=== PATIENT | male | born 1955 | race Caucasian/White ===

== ENCOUNTER 2021-09-23 20:48 | Emergency (ER) | payer OTHER, SELFPAY ==
--- NOTE | ~2021-09-23 | CT_ITS ---
EXAMINATION: CT brain wo con EXAM DATE: 09/23/2021 22:06 INDICATION: vertigo . Nausea and vomiting. Prostate cancer. TECHNIQUE: Spiral CT of the head was performed without contrast. Axial, coronal and sagittal images were reviewed. The dose-length product (DLP) for this examination was 605.33 mGy-cm. The exposure w as tailored according to patient size, and iterative reconstruction (ASIR) was used as additional dos e reduction technique. There is no prior study for comparison. 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 There is no acute intraparenchymal hemorrhage. No evidence of intraparenchymal brain mass lesion. No evidence of acute infarction. Please note that initial head CT has limited sensitivity for small or acute infarctions. There is mild periventricular and subcortical hypodensity, nonspecific but probably related to small vessel ischemic disease. Th ere is mild prominence of the sulci and ventricles related to cerebral atrophy. There is intracrani al carotid arteriosclerosis. There are no extra-axial collections. There is no mass effect or midli ne shift. The orbits are unremarkable. Soft tissue is unremarkable. Small left maxillary sinus muc ous retention cyst. IMPRESSION: 1. 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 2. Chronic age related findings. Reviewed, dictated and finalized at location A. K BENCH MECHANIC
[2021-09-23 21:01] VITALS: BP 143/91; PULSE 54; RESP 13; TEMP 36.6; O2SAT 100
[2021-09-23 21:29] VITALS: PULSE 60
--- NOTE | 2021-09-23 21:37 | ED.GENADULT ---
HPI - General Adult General Chief complaint: Nausea/Vomiting/Diarrhea <Violet Estrella APRN - Last Filed: 09/24/21 21:18> Stated complaint: N/V c vertigo <Violet Estrella APRN - Last Filed: 09/24/21 21:18> Time Seen by Provider: 09/23/21 20:50 <Violet Estrella APRN - Last Filed: 09/24/21 21:18> Source: patient <Violet Estrella APRN - Last Filed: 09/24/21 21:18> Mode of arrival: ambulatory <Violet Estrella APRN - Last Filed: 09/24/21 21:18> Limitations: no limitations <Violet Estrella APRN - Last Filed: 09/24/21 21:18> History of Present Illness HPI narrative: 66-year-old male presents today with complaints of nausea and vomiting. Patient seen yesterday by primary for complaints of vertigo. Patient states vertigo started 3 days ago and is intermittent. Patient denies any specific aggravating factors or relieving factors. Patient states it feels like the room is swaying. at the bedside at current time. Patient and deny any other neurological issues, slurred speech, facial drooping, or weakness. <Violet Estrella APRN - Last Filed: 09/24/21 21:18> Related Data Home medications: Home Medications Medication Instructions Recorded Confirmed aspirin 81 mg tablet,delayed 81 mg PO DAILY 08/20/19 09/18/21 release omeprazole 20 mg capsule,delayed 20 mg PO DAILY PRN 07/18/21 09/18/21 release multivitamin 1 tablet PO DAILY 09/22/21 <Violet Estrella APRN - Last Filed: 09/24/21 21:18> Allergies/adverse reactions: Allergies Allergy/AdvReac Type Severity Reaction Status Date / Time No Known Allergies Allergy Verified 09/22/21 08:49 <Violet Estrella APRN - Last Filed: 09/24/21 21:18> Review of Systems Review of Systems: CONSTITUTIONAL: Denies fever, chills, or sweats. EYES: Denies visual changes, redness, or discharge. ENT: Denies rhinorrhea, congestion, sore throat, or otalgia. CARDIOVASCULAR: Denies chest pain, palpitations, or edema. RESPIRATORY: Denies cough or dyspnea. GASTROINTESTINAL: Denies abdominal pain, nausea, vomiting, or diarrhea. GENITOURINARY: Denies dysuria or hematuria. SKIN: Denies rash or itching. MUSCULOSKELETAL: Denies back pain, joint pain, or myalgia. NEUROLOGIC: Denies headache, numbness, or weakness. Positive for vertigo. Patient states room feels like it is swaying. PSYCHIATRIC: Denies anxiety or depression. <Violet Estrella APRN - Last Filed: 09/24/21 21:18> [facility] Past Medical History Medical History: Medical History (Updated 09/23/21 @ 23:53 by Violet Estrella APRN) Squamous cell carcinoma Vaccine counseling Vertigo <Violet Estrella APRN - Last Filed: 09/24/21 21:18> Family History Family History: Family History Father Family history of cardiovascular disease <Violet Estrella APRN - Last Filed: 09/24/21 21:18> Social History Social History: Social History Smoking packs per day: 1 Smoking cigarettes per day: 20.0 Years smoked: 15 Smoking pack-years: 15.00 Smoking status: Former smoker Second hand tobacco smoke exposure: No Smoking end date: 07/29/83 Alcohol intake: current Drinks per week: 3 Substance use: never Substance use type: does not use <Violet Estrella APRN - Last Filed: 09/24/21 21:18> Exam Narrative: GENERAL: Well-appearing, well-nourished, and in no acute distress. HEAD: Normocephalic, atraumatic. EYES: PERRLA, nystagmus, EOM intact bilaterally.. ENT: Nares clear, no rhinorrhea or epistaxis. Mucous membranes moist. Oropharynx without tonsillar hypertrophy exudate or other lesions. Bilateral TMs pearly garibay nonbulging NECK: Supple. No adenopathy or masses. No carotid bruits or JVD CHEST: Clear to auscultation. No respiratory distress. No wheezes rales or rhonchi HEART: Regular rate and rhythm. No murmur heard. Normal peripheral pulses. ABDOMEN: Soft,
[2021-09-23] MEDS: ONDANSETRON INJ 4 MG/2 ML VIAL IV PUSH (21:44)
[2021-09-23] MEDS: SODIUM CHLORIDE 0.9% IV 1,000 ML 999 ML IV CONT (21:44)
[2021-09-23 21:47] LABS: Basophils Percent Auto 0.4 % (0.2-1.2); Eosinophils Absolute Auto 0.1 K/mm3 (0-0.3); Eosinophils Percent Auto 1.4 % (0-4.4); Hematocrit 44.3 % (42.0-52.0); Hemoglobin 15.1 g/dL (14.0-18.0); Immature Granulocyte Absolute 0.02 K/mm3 (0.00-0.031); Immature Granulocyte Percent A 0.2 % (0-0.5); Lymphocytes Absolute Auto 1.73 K/mm3 (0.9-3.2); Lymphocytes Percent Auto 18.9 % (18.3-44.2); Mean Corpuscular HGB Conc 34.1 g/dl (32-36); Mean Corpuscular Hemoglobin 32.5 pg (26-34); Mean Corpuscular Volume 95.5 fl (80-100); Mean Platelet Volume 10.5 fl (7.4-10.4); Monocytes Absolute Auto 0.8 K/mm3 (0.1-0.6); Monocytes Percent Auto 8.5 % (2.6-8.5); Neutrophils Absolute Auto 6.4 K/mm3 (1.3-6.7); Neutrophils Percent Auto 70.6 % (45.5-73.1); Platelet Count Result 206 k/mm3 (150-375); Red Blood Count 4.64 M/mm3 (4.6-6.20); Red Cell Distribution Width 12.4 % (11.5-14.5); White Blood Count 9.1 K/mm3 (4.5-10.0)
[2021-09-23 21:50] LABS: Glucose Point of Care 140 mg/dl (65-105)
[2021-09-23 22:05] VITALS: BP 125/84; BP 140/86; PULSE 66; PULSE 74
[2021-09-23 22:07] VITALS: BP 136/90; PULSE 78
[2021-09-23 22:08] LABS: Alanine Aminotransferase 28 U/L (4-50); Albumin Level 4.4 g/dL (3.5-5.1); Alkaline Phosphatase 40 U/L (38-126); Anion Gap 6 mmol/L (8-16); Aspartate Amino Transferase 32 U/L (17-59); Bilirubin,Total 0.9 mg/dL (0.2-1.3); Blood Urea Nitrogen 23 mg/dL (9-20); Calcium 8.4 mg/dL (8.4-10.2); Carbon Dioxide 28 mmol/L (22-30); Chloride 105 mmol/L (98-107); Estimated CRCL calculation 77 ml/min; Estimated Glomerular Filt Rate > 60; Glucose 146 mg/dL (65-110); Potassium 3.4 mmol/L (3.4-5.0); Sodium 139 mmol/L (137-145)
[2021-09-23 22:27] VITALS: BP 136/90; PULSE 71; RESP 20; O2SAT 100
[2021-09-23] MEDS: diazePAM INJ (*CRX) 10 MG/2 ML SYRINGE 2.5 MG IV PUSH (22:28)
--- NOTE | 2021-09-23 22:53 | PC.NURSE ---
Pt states his dizziness has improved. Repots he is able to open his eyes without difficulty. Lights dimmed, pt resting on stretcher
[2021-09-23 23:04] LABS: Add Urine Microscopic? YES; Appearance Urine Clear (Clear); Bilirubin Urine Negative (Negative); Blood Urine Negative (Negative); Color Urine Yellow (Yellow); Glucose Urine UA Negative (Negative); Ketones Urine Negative (Negative); Leukocyte Esterase Ur Negative LEU/UL (Negative); Mucus Urine Rare /lpf; Nitrate Urine Negative (Negative); Protein Urine 1+ mg/dL (Negative); RBC Urine 0-2 /hpf (0-2); Specific Grav Ur 1.029 (1.001-1.035); WBC Urine 0-3 /hpf
--- NOTE | 2021-09-23 23:31 | PC.NURSE ---
Pt ambulated with steady gait
== END 2021-09-24 00:05 | disposition home or self-care (01) ==
PROVIDERS: Emergency Provider Nurse Practitioner Family; PCP Internal Medicine
DX: R42 Dizziness and giddiness (principal); Z79.82 Long term (current) use of aspirin; Z85.828 Personal history of other malignant neoplasm of skin; Z87.891 Personal history of nicotine dependence
CPT/HCPCS: 36415; 70450; 80053; 81001; 82948; 85025; 96361; 96374; 96375; 99284; J2405; J3360; J7030

== ENCOUNTER 2023-08-09 00:54 | Day surgery (SDC) | payer OTHER, SELFPAY ==
[2023-07-15 15:39] VITALS: BMI 27.3
--- NOTE | 2023-08-07 10:49 | SUR.PREOP ---
Patient called regarding upcoming procedure. Reviewed preop instructions, appointment times, and procedure prep.
--- NOTE | 2023-08-08 17:43 | PM.HPGS ---
History of Present Illness History of Present Illness Consent: Risks, benefits, and alternatives have been discussed and questions answered. Patient agrees to proceed with procedure. Chief complaint: neoplasm screening Narrative: Cain Willams is a 68 year old male Who was referred for colon cancer screening. His last colonoscopy was 6 years ago at which time he had 4 polyps removed, 2 of which were adenomatous. Review of Systems Review of Systems: All systems reviewed & are unremarkable except as noted in HPI and below PMFSH Past Medical History Medical History Adult BMI 27.0-27.9 kg/sq m Squamous cell carcinoma Vaccine counseling Vertigo Family History Family History Father Family history of cardiovascular disease Lung cancer Brain cancer Heart disease Grandparent Heart disease Mother Dementia Skin cancer Sibling Heart disease Social History Social History Smoking packs per day: 1 Smoking cigarettes per day: 20.0 Years smoked: 15 Smoking pack-years: 15.00 Smoking status: Former smoker Second hand tobacco smoke exposure: No Smoking end date: 07/29/83 Alcohol intake: current Drinks per week: 3 Substance use: never Substance use type: does not use Lack of Transportation: No Lack of Food: Never True Current Housing: I Have Housing Concerned About Future Housing: No Difficulty Paying Gas/Electric Bills: No Difficulty Paying for Meds: No Currently Unemployed: No Education: Trade/Vocational Certificate Difficulty w/ Childcare or Family Care: No Living arrangements: with family Occupation/Education: occupation 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 Gender identity (if verbalized by the patient): Male Spiritual care concerns: No Meds Home Medications and Allergies Home Medications Medication Instructions Recorded Confirmed Type aspirin 81 mg tablet,delayed 81 mg PO DAILY 08/20/19 08/09/23 History release (Aspir-) omeprazole 20 mg capsule,delayed 20 mg PO DAILY PRN Heartburn 07/18/21 08/09/23 History release multivitamin (Daily Multi-Vitamin 1 tablet PO DAILY 09/22/21 08/09/23 History tablet) desonide 0.05 % topical cream 1 g topical DAILY 09/18/22 08/09/23 History losartan 50 mg-hydrochlorothiazide 1 tablet PO DAILY #90 tabs 12/17/22 08/09/23 Rx 12.5 mg tablet levothyroxine 88 mcg tablet 88 mcg PO DAILY #90 tabs 06/16/23 08/09/23 Rx atorvastatin 20 mg tablet 20 mg PO DAILY #90 tabs 06/28/23 08/09/23 Rx Allergies Allergy/AdvReac Type Severity Reaction Status Date / Time No Known Allergies Allergy Verified 08/09/23 07:48 Exam Const: General: alert Orientation/consciousness: patient oriented x3 Resp: Auscultation: clear to auscultation bilaterally Cardio: Rhythm: regular rhythm GI: GI Palp: Yes Soft to palpation and No Tenderness to palpation present (GI) Neuro: General: patient oriented x3 Assessment and Plan Assessment and plan (1) Screen for colon cancer: Code(s): Z12.11 - Encounter for screening for malignant neoplasm of colon Status: Acute Assessment and Plan: Colonoscopy with possible biopsy or polypectomy or cautery or injection of substances.
[2023-08-09 07:50] VITALS: BP 113/79; PULSE 66; RESP 16; TEMP 36.6; O2SAT 97; BMI 26.6
[2023-08-09] MEDS: LACTATED RINGERS 1,000 ML 150 ML IV CONT (08:01)
--- NOTE | 2023-08-09 08:18 | WPDANESEPPF ---
Anes - Initial Pre Proc Eval Procedure: Operation Date: 08/09/23 09:00 Proposed Procedures p Screening Colonoscopy - Nikos Peralta MD Date/Time: 08/09/23 08:18 Surgeon: Nikos Peralta MD Pre Op Diagnosis: neoplasm screening Patient Data Age: 68 Gender: M Height: 1.75 m Weight: 82 kg Last Vital Signs Temp 97.8 F 08/09/23 07:50 Pulse 66 08/09/23 07:50 Resp 16 08/09/23 07:50 BP 113/79 08/09/23 07:50 Pulse Ox 97 08/09/23 07:50 O2 Del Method Room Air 08/09/23 07:50 Allergies Allergy/AdvReac Type Severity Reaction Status Date / Time No Known Allergies Allergy Verified 08/09/23 07:48 Home Medications Medication Instructions Recorded Confirmed Type aspirin 81 mg tablet,delayed 81 mg PO DAILY 08/20/19 08/09/23 History release (Aspir-) omeprazole 20 mg capsule,delayed 20 mg PO DAILY PRN Heartburn 07/18/21 08/09/23 History release multivitamin (Daily Multi-Vitamin 1 tablet PO DAILY 09/22/21 08/09/23 History tablet) desonide 0.05 % topical cream 1 g topical DAILY 09/18/22 08/09/23 History losartan 50 mg-hydrochlorothiazide 1 tablet PO DAILY #90 tabs 12/17/22 08/09/23 Rx 12.5 mg tablet levothyroxine 88 mcg tablet 88 mcg PO DAILY #90 tabs 06/16/23 08/09/23 Rx atorvastatin 20 mg tablet 20 mg PO DAILY #90 tabs 06/28/23 08/09/23 Rx Patient hx anesthesia problems: none Family hx anesthesia problems: none Results Review: All pre-operative results and documents have been reviewed as part of the pre-operative evaluation. [facility] Past Medical History Medical History Adult BMI 27.0-27.9 kg/sq m Squamous cell carcinoma Vaccine counseling Vertigo Family History Family History Father Family history of cardiovascular disease Lung cancer Brain cancer Heart disease Grandparent Heart disease Mother Dementia Skin cancer Sibling Heart disease Social History Social History Smoking packs per day: 1 Smoking cigarettes per day: 20.0 Years smoked: 15 Smoking pack-years: 15.00 Smoking status: Former smoker Second hand tobacco smoke exposure: No Smoking end date: 07/29/83 Alcohol intake: current Drinks per week: 3 Substance use: never Substance use type: does not use Lack of Transportation: No Lack of Food: Never True Current Housing: I Have Housing Concerned About Future Housing: No Difficulty Paying Gas/Electric Bills: No Difficulty Paying for Meds: No Currently Unemployed: No Education: Trade/Vocational Certificate Difficulty w/ Childcare or Family Care: No Living arrangements: with family Occupation/Education: occupation 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 Informed Consent: The patient's anesthetic plan and its attendant risks and benefits were discussed with the patient/family/POA. Questions were solicited and answers provided to the satisfaction of the patient/family/POA.
[2023-08-09 08:59] VITALS: BP 126/75; PULSE 58; RESP 18; O2SAT 97
[2023-08-09 09:09] VITALS: BP 136/65; PULSE 52; RESP 18; O2SAT 100
[2023-08-09 09:19] VITALS: BP 142/81; PULSE 56; RESP 18; O2SAT 100
== END 2023-08-09 09:24 | disposition home or self-care (01) ==
PROVIDERS: PCP Family Medicine; Visit Provider Internal Medicine Gastroenterology
PROC: 0DJD8ZZ Inspection of Lower Intestinal Tract, Via Natural or Artificial Opening Endoscopic (ICD-10-PCS; CPT 45378; principal; 2023-08-09 09:00)
DX: Z12.11 Encounter for screening for malignant neoplasm of colon (principal); D12.4 Benign neoplasm of descending colon; Z87.891 Personal history of nicotine dependence
CPT/HCPCS: 45380; 88305; J2704; J7120

== ENCOUNTER 2024-09-15 11:14 | Emergency (ER) | payer OTHER, SELFPAY ==
--- NOTE | ~2024-09-15 | CT_ITS ---
EXAMINATION: CT brain wo con DATE: 09/15/2024 11:21 INDICATION: Expressive aphasia. TECHNIQUE: Computed tomography (CT) of the head was performed without intravenous contrast. The mA wa s adjusted according to patient size. Iterative reconstruction technique was employed. The dose-lengt h product was 605.33 mGy-cm. COMPARISON: Head CT 09/23/2021 FINDINGS: There is an old infarct in the right frontal lobe. There are scattered areas of low attenua tion in the cerebral white matter. There is no intracranial hemorrhage, acute infarction, or abnormal intracranial mass lesion. The ventricles are normal in size. There is mucosal thickening in the para nasal sinuses. The orbits are normal. The mastoid air cells are normal. IMPRESSION: 1. 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 2. Stable mild nonspecific cerebral white matter disease, which likely represents chronic small vesse l ischemic disease. 3. I discussed this case with Rosalie Trevino. Reviewed, dictated and finalized at location A. RED BUCKLE ASSEMBLER IMPRESSION: 1. 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 2. Stable mild nonspecific cerebral white matter disease, which likely represen ts chronic small vessel ischemic disease. 3. I discussed this case with Rosalie Trevino.
--- NOTE | ~2024-09-15 | CT_ITS ---
EXAMINATION: CTA BRAIN/CAROTID DATE: 09/15/2024 11:29 INDICATION: Stroke with expressive aphasia TECHNIQUE: Computed tomographic angiography (CTA) of the head and neck was performed with 100 mL Omni paque-350 intravenous contrast. Multiplanar reconstructions and maximum intensity projection 3D-recon structions of the carotid arteries and of the intracranial arteries were created by the technologist on a separate workstation. Automated exposure control and iterative reconstruction technique were emp loyed.The dose-length product was 1171.26 mGy-cm. COMPARISON: Head CT dated 09/15/2024 FINDINGS: Carotid arteries: Small amount of nonhemodynamically significant atherosclerotic calcific location along the normal juana iber thoracic aorta with no dissection. No evident plaque or stenosis along the bilateral extracrania l vertebral arteries. There is small amount of atherosclerotic plaque with 0% stenosis of the right a nd left carotid bulbs relative to normal distal artery lumen diameter (NASCET criteria). Severe cervi juana spondylosis. Mild atelectasis likely related to expiratory phase of imaging the visualized upper lungs. Cervical soft tissues are unremarkable. Intracranial arteries Small amount of calcified plaque without significant stenosis at the right carotid siphon. There is n o hemodynamically significant stenosis in the vertebral, basilar and internal carotid arteries. Verte bral arteries are codominant. There are no aneurysms identified. Both A1 and P1 segments are patent. There are also tiny patent bilateral posterior communicating arteries. Cerebral arterial arborizatio n appears symmetric. No abnormally enhancing brain lesions identified. IMPRESSION: 1. Small amount of atherosclerotic plaque with 0% stenosis of the right and left carotid bulbs relati ve to normal distal artery lumen diameter (NASCET criteria). 2. Unremarkable cerebral CT angiogram with no hemodynamically significant stenosis, thrombosis or ane urysm. Reviewed, dictated and finalized at location A. N WAVE TECHNICIAN IMPRESSION: 1. Small amount of atherosclerotic plaque with 0% stenosis of the right and lef t carotid bulbs relative to normal distal artery lumen diameter (NASCET criteri a). 2. Unremarkable cerebral CT angiogram with no hemodynamically significant steno sis, thrombosis or aneurysm.
--- NOTE | ~2024-09-15 | XR_ITS ---
EXAMINATION: XR chest 1V portable DATE: 09/15/2024 12:42 INDICATION: Stroke. TECHNIQUE: A single frontal view of the chest was obtained. COMPARISON: None. FINDINGS: There is no pneumonia, pleural effusion, or pneumothorax. The heart size is normal. IMPRESSION: 1. No acute cardiopulmonary disease. Reviewed, dictated and finalized at location A. NESS ANALYTICS MANAGER
--- NOTE | 2024-09-15 11:15 | ECG_ITS ---
Test Date: 2024-09-15 11:34:38 Measurements Intervals [place] Rate: 56 P: 23 FL: 167 QRS: -38 QRSD: 113 T: 49 QT: 434 QTc: 422 Interpretive Statements SINUS BRADYCARDIA LEFT AXIS DEVIATION INTRAVENTRICULAR CONDUCTION DELAY PATTERN CONSISTENT WITH PULMONARY DISEASE BASELINE ARTIFACT- I, II, III, AVR, AVL, AVF, V1, V4-V6 BORDERLINE ECG No previous ECG available for comparison Electronically Signed On 09-15-2024 12:03:38 ENTERPRISE ENGINEER by Jayjay Balderas D.O.
--- OUTSIDE RECORDS SUMMARY | 2024-09-15 11:19 | XMS_ITS | Referral Summary ---
Author Organization [facility] Address [address] [place] [address] Care Team Providers Care Marine Biologist Name Role Phone Unavailable Primary Care Provider Unavailabl e Source Comments [facility],non-owned Affiliates and Associated Physician Practices is amultiple site organization consisting of ambulatory clinics and hospital sitesin [place], [place], [place]. This disclosure is being madepursuant to the Care Everywhere program and may not contain all information available regarding this patient. Last updated 18.[facility] [place] Social History Tobacco Use Types Packs/Day Years Used Date Smoking Tobacco: Never Assessed Sex and Gender Information Value Date Recorded Sex Assigned at Not on file Gender Identity Not on file Sexual Orientation Not on file Plan of Treatment Not on file
--- OUTSIDE RECORDS SUMMARY | 2024-09-15 11:19 | XMS_ITS | Clinical Summary ---
Author Organization [facility] Address [address] [place] [address] Care Team Providers Care Central Service Technician Name Role Phone Unavailable Primary Care Provider Unavailabl e Source Comments [facility],non-owned Affiliates and Associated Physician Practices is amultiple site organization consisting of ambulatory clinics and hospital sitesin [place], [place], [place] and [place]. This disclosure is being madepursuant to the Care Everywhere program and may not contain all information available regarding this patient. Last updated 18.[facility] Social History Tobacco Use Types Packs/Day Years Used Date Smoking Tobacco: Never Assessed Sex and Gender Information Value Date Recorded Sex Assigned at Not on file Gender Identity Not on file Sexual Orientation Not on file Plan of Treatment Health Maintenance Due Date Last Done Comments COLOGUARD (AGES 45-75) - COL ON CA SCREENING [address] COLONOGRAPHY - COLON CA SCREENING 1955 FIT - COLON CA SCREENING 1955 FLEX SIG - COLON CA SCREENING 1955 LIPID TESTING 1953 HEPATITIS C SCREENING 06/05/1971 DTAP/TDAP/TD VACCINES (1 - Tdap) 1972 PNEUMOCOCCAL VACCINE 50+ (1 of 1 - PCV) 2003 ZOSTER VACCINE (1 of 2) 2003 COLONOSCOPY - COLON CA SCREENING 12/04/2017 12/05/2007 (Previously completed) Colorectal Cancer Screening 12/04/2017 COVID-19 VACCINE ( - 2023-2 5 season) 2024 INFLUENZA VACCINE (#1) 2024 DEPRESSION SCREENING 07/29/2024 MEDICARE AWV CALENDAR YEAR 2024 Respiratory Syncytial Virus (RSV) Vaccine Pt: or over 60 yrs (1 - 1-dose 75+ series) 2028 HEPATITIS B VACCINE Aged Out No longe r eligible based on patient's age to complete this topic HIB VACCINE Aged Out No longer eligi ble based on patient's age to complete this topic HPV VACCINE Aged Out No longer eligi ble based on patient's age to complete this topic MENINGOCOCCAL (Group B) VACCINE Aged Out No longer eligible b ased on patient's age to complete this topic MENINGOCOCCAL VACCINE Aged Out No omer earlene eligible based on patient's age to complete this topic
--- OUTSIDE RECORDS SUMMARY | 2024-09-15 11:19 | XMS_ITS | Clinical Summary ---
Author Organization [facility] Address [address], [address] [address] Phone Care Team Providers Care Infusion Rn Name Role Phone Provider, Unknown Primary Care Provider Unavaila ble Medications polyethylene glycol (MIRALAX) Powder Mix the entire bottle with 64 oz of a clear liquid. Use as directed by the office for colonoscopy prep. 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 Gender Identity Not on file Sexual Orientation Not on file Plan of Treatment Health Maintenance Due Date Last Done Comments Hepatitis C Virus (HCV) Screening 1955 TdaP Immunization 1955 Cologuard 2003 Pneumococcal Immunization (5 0+ years) (1 of 1 - PCV) 2003 Zoster Immunization (1 of 2) 2003 Immunochemical Fecal Occult Blood 12/13/2014 014 Colonoscopy 08/15/2022 08/15/2017 Colorectal Cancer Screening 08/15/2022 Influenza Immunization (#1) 2024 SARS-COV-2 Immunization ( - season) 2024 Respiratory Syncytial Virus (RSV) Immunization (Adult) (1 - 1-dose 75+ series) 2028 08/15/2017 PSA Discussion Discontinued 11/17/2009 Hepatitis B Immunization Aged Out No longer eligible based on patient's age to complete this topic Meningococcal Immunization (ACWY) Aged Out No longer eligible based on patient's age to complete this topic Rotavirus Immunization Aged Out No lo nger eligible based on patient's age to complete this topic Procedures Procedure Name Priority Date/Time Associated Diagnosis Comments COLONOSCOPY Routine 08/15/2017 STOOL, OCCULT BLOOD IMMUNOASSAY (IFOB) Routine 12/13/2013 PSA SCREEN Routine 11/17/2009 from Last 3 Months or Most Recently Relevant to Health Maintenance Results * HM COLONOSCOPY (08/15/2017) us Not On File Provider PROCEDURE/MINOR SURGICAL OR DERABLES Final Result * STOOL, OCCULT BLOOD IMMUNOASSAY (IFOB) (12/13/2013) Specimen of unknown material (specimen) STOOL SPECIMEN / Unknown us Not On File Provider BODY FLUIDS & STOOLS ORDERA BLES Final Result * PSA SCREEN (11/17/2009) PSA SCREEN 2.8 Blood specimen (specimen) 11/17/2009 us Not On File Provider CHEMISTRY ORDERABLES Edited Result - Final from Last 3 Months or Most Recently Relevant to Health Maintenance Insurance [facility] Care Teams Infusion Rn Relationship Specialty Start Date End Date Provider, Unknown UNKNOWN PCP - General 08/17/17
--- OUTSIDE RECORDS SUMMARY | 2024-09-15 11:19 | XMS_ITS | Patient Health Summary ---
Author Organization [facility] Address [address] [place] [address] Care Team Providers Care Hand Engraver Name Role Phone Unavailable Primary Care Provider Unavailabl e Note from [facility],non-owned Affiliates and Associated Physician Practices is amultiple site organization consisting of ambulatory clinics and hospital sitesin [place], [place], [place] and [place]. This disclosure is being madepursuant to the Care Everywhere program and may not contain all information available regarding this patient. Last updated 18.[facility] Social History Tobacco Use Types Packs/Day Years Used Date Smoking Tobacco: Never Assessed Sex and Gender Information Value Date Recorded Sex Assigned at Not on file Gender Identity Not on file Sexual Orientation Not on file Procedures * GROSS + MICRO EXAM(Performed 12/05/2007) Results * GROSS + MICRO EXAM (12/05/2007 12:43 PM CDT) Result CASE NUMBER [id number] Comment: ORDERING PHYSICIAN NARCISA FRYE SPECIMEN TYPE Polyp Colorectal-rectal Date 12/05/2007 Physician Alex Frye Gross Description The specimen is received in Formalin labeled with the patient's name, Cain Willams, and rectal polyp. It consists of one acuña white soft fragment of tissue measuring 0.5 x 0.3 x 0.2 cm in aggregate. The specimen is submitted entirely in a single cassette. DC watson Microscopic Exam Microscopic examination reveals colonic mucosal fragments. One of the fragments shows sessile serrated polyp. High grade dysplasia is not seen. SR cs Diagnosis [1] Rectal polyp, biopsy -- Sessile serrated polyp -- No evidence of high grade dysplasia SR cs Orthotic/Prosthetic Clinician cs Pathologist Kathleen Pradhan M.D. [place]. 12/06/2007 0909 <1> CPT code 05396 MISCELLANEOUS SAMPLES / Unknown 12/05/2007 12:43 PM CDT 12/05/2007 3:02 PM CDT Historical Provider LAB - PATHOLOGY/C YTOLOGY ORDERABLES
--- OUTSIDE RECORDS SUMMARY | 2024-09-15 11:19 | XMS_ITS | Continuity of Care Document ---
Author Organization [facility] Address [address] [place] [address] Phone Care Team Providers Care Ore Washer Name Role Phone Cloud OD, Gilberto Unavailable Unavailable Procedures Procedure Date Eye Exam & Treatment Refraction Eye Exam & Treatment Refraction Frames Deluxe Progressive Lens, Polycarb Tax - Medical Eye Exam, New Patient Refraction Advance Directives Directive Yes / No Effective Date File Name No Information Encounters Encounter Description Practice Location Reason(s) For Visit Diagnoses Date Provider Providers Copied on Encounter [facility], [address] [place] [address] [address], [place], [place], [id number], tel:[phone] [facility] No Information Oct-2 1-201 0 Cloud OD Gilberto. [address] , [address], [place], [place], [facility], [place]. tel:[phone] [facility], [address], [place], [place], [id number], [place] tel:[phone] [facility] No Information Sep-0 3-200 9 Cloud OD Gilberto. [address], [address], [place], [place], [facility], . tel:[phone] [facility], [address] [place] [address] [address], [place], [place], [id number], [place] tel:[phone] [facility] No Information [facility] [employer] . [address], [address], [place], [place], [id number], [place]. tel:[phone] Referring Provider: Gilberto Cloud OD Jean Claude, [address], [place], [address]. tel:[phone] sulting Provider: Susan Ross, [address] [place], [address]. tel:[phone] [facility], [address], [place], [place], [id number], [place] tel:[phone] [facility] No Information 7 Cloud OD Gilberto. [address] , [address], [place], [address], [place]. tel:[phone] Family History Family Member Type Diagnosis Age At Onset No Information Payers Payer name Insurance type Covered republican ID Authoriza tidontae(s) [facility] Out Of State CI [id number] Social History Type Description Quantity Date Captured [...]
[2024-09-15 11:27] LABS: Estimated Glomerular Filt Rate > 60
[2024-09-15 11:31] VITALS: BP 147/89; PULSE 61; PULSE 85; RESP 15; RESP 30; O2SAT 100
[2024-09-15 11:32] LABS: Basophils Percent Auto 0.5 % (0.2-1.2); Eosinophils Percent Auto 0.7 % (0-4.4); Hematocrit 46.2 % (42.0-52.0); Hemoglobin 15.3 g/dL (14.0-18.0); Immature Granulocyte Absolute 0.02 K/mm3 (0.00-0.031); Immature Granulocyte Percent A 0.3 % (0-0.5); Lymphocytes Absolute Auto 1.26 K/mm3 (0.9-3.2); Mean Corpuscular HGB Conc 33.1 g/dl (32-36); Mean Corpuscular Hemoglobin 31.7 pg (26-34); Mean Corpuscular Volume 95.9 fl (80-100); Mean Platelet Volume 9.9 fl (7.4-10.4); Monocytes Absolute Auto 0.6 K/mm3 (0.1-0.6); Monocytes Percent Auto 10.1 % (2.6-8.5); Neutrophils Absolute Auto 4.1 K/mm3 (1.3-6.7); Neutrophils Percent Auto 67.4 % (45.5-73.1); Platelet Count Result 242 k/mm3 (150-375); Red Blood Count 4.82 M/mm3 (4.6-6.20); Red Cell Distribution Width 12.2 % (11.5-14.5)
[2024-09-15 11:41] VITALS: BP 147/89; PULSE 60; RESP 13; O2SAT 100
--- NOTE | 2024-09-15 11:41 | ED.NEUROSD ---
HPI - Neuro Symptoms/Deficit General Chief Complaint: Suspected CVA Stated Complaint: stroke symptoms Time Seen by Provider: 09/15/24 11:20 Source: family Mode of arrival: ambulatory Limitations: language barrier History of Present Illness HPI Narrative: 69-year-old with a history of hypertension, hyperlipidemia, TIA about 20 years ago was brought in by with a complaint of sudden onset of expressive aphasia with started about 1105 this morning. Patient upon arrival denies having headache, chest pain or motor weakness. She is not on any anticoagulant. Onset (ago): minute(s) (15) Time: 11:14 Last Observed Normal: 11:05 Timing confirmed by: spouse Location: speech History of same: Yes Context: sudden onset On Anticoagulants: No Associated symptoms: denies other symptoms Related Data Home Medications ?Medication ?Instructions ?Recorded ?Confirmed ?Last Taken ?Type aspirin 81 mg tablet,delayed 81 mg PO DAILY 08/20/19 09/15/24 Unknown History release (Aspir-) multivitamin (Daily Multi-Vitamin 1 tablet PO DAILY 09/22/21 09/15/24 Unknown History tablet) famotidine 20 mg tablet 20 mg PO QHS 01/13/24 09/15/24 Unknown History Allergies Allergy/AdvReac Type Severity Reaction Status Date / Time No Known Allergies Allergy Verified 09/15/24 11:42 Review of Systems Review of Systems: All systems reviewed & are unremarkable except as noted in HPI and below Constitutional: Constitutional: Reports no additional constitutional complaints Eyes: Eyes: Reports no additional eye complaints ENT: Reports system reviewed and no additional complaints, except as documented Cardiovascular: Cardiovascular: Reports no additional cardiovascular complaints Respiratory: Respiratory: Reports no additional respiratory complaints Gastrointestinal: Gastrointestinal: Reports no additional gastrointestinal complaints Musculoskeletal: Musculoskeletal: Reports no additional musculoskeletal complaints Neurologic: Reports as per HPI Psychiatric: Psychiatric: Reports no additional psychiatric complaints Endocrine: Endocrine: Reports no additional endocrine complaints Hematologic/Lymphatic: Hematologic/Lymphatic: Reports no additional hematologic/lymphatic complaints [facility] Past Medical History Medical History Actinic keratosis Skin abnormality TIA (transient ischemic attack) COVID-19 vaccine series completed IFG (impaired fasting glucose) Cerumen impaction Otalgia of both ears Otitis externa Adult BMI 27.0-27.9 kg/sq m Squamous cell carcinoma Vertigo Vaccine counseling Family History Family History Father Family history of cardiovascular disease Lung cancer Brain cancer Heart disease Grandparent Heart disease Mother Dementia Skin cancer Sibling Heart disease Social History Social History Smoking packs per day: 1 Smoking cigarettes per day: 20.0 Years smoked: 15 Smoking pack-years: 15.00 Smoking status: Former smoker Second hand tobacco smoke exposure: No Smoking end date: 07/29/83 Alcohol intake: current Drinks per week: 3 Substance use: never Substance use type: does not use Do You Feel Safe in your Home?: Yes Lack of Transportation: No Lack of Food: Never True Current Housing: I Have Housing Concerned About Future Housing: No Difficulty Paying Gas/Electric Bills: No Difficulty Paying for Meds: No Currently Unemployed: No Education: Trade/Vocational Certificate Difficulty w/ Childcare or Family Care: No Living arrangements: with family Occupation/Education: occupation 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 HEAD: Normocephalic, atraumatic. EYES: PERRLA and EOMI. NECK: Supple. CHEST: Clear to auscultation. No respiratory distress. HEART: Regular rate and rhythm. No murmur heard. Normal peripheral pulses. ABDOMEN: Soft, nontender, nondistended, normal active bowel sounds. EXTREMITIES: Normal range of motion. No edema. SKIN: Warm, dry, no rash. NEURO: No focal deficits. Alert and oriented x3. Has expressive aphasia for further details look into NIH score PSYCH: Normal mood and affect. Course Course Emergency Course: Patient continues to have expressive aphasia, his NIH score is 2. I discussed with the Stroke Neurology Dr. Ugalde at [facility] ,agreed with Justin after shared decision with a pt and family as his NIH is low , pt and his agreed with TNK , i have explained to him and his about the Pro and side effects of the medication , pt is willing to get the medication.pt will be transferred toS. Reevaluation(s) Reevaluation #1: Patient did receive TNK , he is able to get few words out no headache . Date: 09/15/24 Time: 12:09 Vital Signs Vital signs: Vital Signs Pulse Rate 61 09/15/24 11:31 Respiratory Rate 15 09/15/24 11:31 Blood Pressure 147/89 H 09/15/24 11:31 Pulse Oximetry 100 09/15/24 11:31 Pulse Rate 60 09/15/24 11:41 Respiratory Rate 13 09/15/24 11:41 Blood Pressure 147/89 H 09/15/24 11:41 Pulse Oximetry 100 09/15/24 11:41 MDM - Neuro Symptoms/Deficit MDM Narrative Medical decision making narrative: 69-year-old with a history of hypertension, TIA here with expressive aphasia, has a NIH score of 2 but he has symptoms which are debilitating will consider TNK . will discuss with Stroke Neurology Differential Diagnosis Differential diagnosis: Likely subarachnoid hemorrhage and cerebrovascular accident Medical Records Attestation: I reviewed the patient's medical records. Lab Data Attestation: I reviewed the patient's lab results. 09/15/24 11:24 09/15/24 11:26 Labs: Lab Results 09/15/24 09/15/24 Range/Units 11:24 11:26 WBC 6.0 (4.5-10.0) K/mm3 RBC 4.82 (4.6-6.20) M/mm3 Hgb 15.3 (14.0-18.0) g/dL Hct 46.2 (42.0-52.0) % MCV 95.9 (80-100) fl MCH 31.7 (26-34) pg MCHC 33.1 (32-36) g/dl RDW 12.2 (11.5-14.5) % Plt Count 242 (150-375) k/mm3 MPV 9.9 (7.4-10.4) fl Immature Gran % (Auto) 0.3 (0-0.5) % Neut % (Auto) 67.4 (45.5-73.1) % Lymph % (Auto) 21.0 (18.3-44.2) % [place] % (Auto) 10.1 H (2.6-8.5) % Eos % (Auto) 0.7 (0-4.4) % Baso % (Auto) 0.5 (0.2-1.2) % Lymph # (Auto) 1.26 (0.9-3.2) K/mm3 [place] # (Auto) 0.6 (0.1-0.6) K/mm3 Eos # (Auto) 0.0 (0-0.3) K/mm3 Baso # (Auto) 0.0 (0.0-0.1) K/mm3 Abs Immat Gran (auto) 0.02 (0.00-0.031) K/mm3 Absolute Neuts (auto) 4.1 (1.3-6.7) K/mm3 Absolute Nucleated RBC 0.000 (0.0-0.012) K/mm3 Nucleated RBC % 0.0 (0.0-0.2) % PT 13.4 (11.1-14.7) Seconds INR 1.0 APTT 25.8 (22.3-36.8) Seconds Sodium 142 (137-145) mmol/L Potassium 3.8 (3.4-5.0) mmol/L Chloride 102 (98-107) mmol/L Carbon Dioxide 28 (22-30) mmol/L Anion Gap 12 (4-12) mmol/L BUN 19 (9-20) mg/dL Creatinine 0.73 0.90 (0.7-1.3) mg/dL Estim Creat Clear Calc 80 Not Reportable ml/min Estimated GFR > 60 > 60 (59 - ) Glucose 109 (65-110) mg/dL Calcium 9.2 (8.4-10.2) mg/dL Total Bilirubin 0.9 (0.2-1.3) mg/dL AST 37 (17-59) U/L ALT 51 H (6-50) U/L Alkaline Phosphatase 50 (38-126) U/L Troponin I < 0.012 (0.000-0.034) ng/mL Total Protein 8.0 (6.3-8.2) g/dL Albumin 4.5 (3.5-5.1) g/dL Imaging Data Radiologist's impression: ITS Impressions Head CT 09/15/24 11:21 IMPRESSION: 1. 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 2. Stable mild nonspecific cerebral white matter disease, which likely represents chronic small vessel ischemic disease. 3. I discussed this case with Rosalie Trevino. Head/Neck CTA 09/15/24 11:35 IMPRESSION: 1. Small amount of atherosclerotic plaque with 0% stenosis of the right and left carotid bulbs relative to normal distal artery lumen diameter (NASCET criteria). 2. Unremarkable cerebral CT angiogram with no hemodynamically significant stenosis, thrombosis or aneurysm. ECG Data EKG #1: ECG completion date: 09/15/24 ECG completion time: 11:34 Ischemic changes: acute NSTEMI EKG Interpretation: bradycardia (56), non-specific ST changes, no ST changes and left axis Critical Care Time Critical Care Time Critical Care Time: Yes Total Critical Care Time: 45 Discharge Plan Discharge Clinical Impression: Acute CVA (cerebrovascular accident) Patient Disposition: Acute Care Hospital Condition: Stable Patient Language: Turkmen Prescriptions: No Action aspirin [Aspir-81] 81 mg tablet,delayed release (DR/EC) 81 mg PO DAILY famotidine 20 mg tablet 20 mg PO QHS multivitamin [Daily Multi-Vitamin] Tablet 1 tablet PO DAILY atorvastatin 20 mg tablet 20 mg PO DAILY Qty: 90 3RF losartan-hydrochlorothiazide 50-12.5 mg tablet 1 tablet PO DAILY Qty: 90 2RF levothyroxine 88 mcg tablet 88 mcg PO DAILY Qty: 90 1RF Follow-up/Referrals: Hiren Hardy MD [Primary Care Provider] - Time of Disposition: 12:19 Quality Stroke Date of last known normal: 09/15/24 Time of last known normal: 11:05 Stroke Scale Stroke Scale 1: 1a Level of consciousness: alert-0 1b Level of consciousness questions: answers both correctly-0 1c Level of consciousness commands: obeys both correctly-0 2 Best gaze: normal-0 3 Visual: no visual loss-0 4 Facial palsy: normal-0 5a Motor: left arm: no drift-0 5b Motor: right arm: no drift-0 6a Motor: left leg: no drift-0 6b Motor: right leg: no drift-0 7 Limb ataxia: absent-0 8 Sensory: normal-0 9 Best language: severe aphasia-2 10 Dysarthria: normal-0 11 Extinction and inattention: no abnormality-0 Level:: 2
[2024-09-15 11:43] LABS: Alanine Aminotransferase 51 U/L (6-50); Albumin Level 4.5 g/dL (3.5-5.1); Alkaline Phosphatase 50 U/L (38-126); Anion Gap 12 mmol/L (4-12); Aspartate Amino Transferase 37 U/L (17-59); Bilirubin,Total 0.9 mg/dL (0.2-1.3); Blood Urea Nitrogen 19 mg/dL (9-20); Calcium 9.2 mg/dL (8.4-10.2); Carbon Dioxide 28 mmol/L (22-30); Chloride 102 mmol/L (98-107); Estimated CRCL calculation 80 ml/min; Estimated Glomerular Filt Rate > 60; Glucose 109 mg/dL (65-110); Potassium 3.8 mmol/L (3.4-5.0); Sodium 142 mmol/L (137-145)
[2024-09-15 11:44] LABS: Partial Thromboplastin Time 25.8 Seconds (22.3-36.8); Prothrombin Time 13.4 Seconds (11.1-14.7)
[2024-09-15 11:55] LABS: Troponin I < 0.012 ng/mL (0.000-0.034)
[2024-09-15 11:58] LABS: Glucose Point of Care 125 mg/dl (65-105)
--- OUTSIDE RECORDS SUMMARY | 2024-09-15 12:02 | XMS_ITS | Continuity of Care Document ---
Author Organization [facility] Address [address] [place] [address] Phone Care Team Providers Care Manager Transfer Name Role Phone Cloud OD, Gilberto Unavailable Unavailable Procedures Procedure Date Eye Exam & Treatment Refraction Eye Exam & Treatment Refraction Frames Deluxe Progressive Lens, Polycarb Tax - Medical Eye Exam, New Patient Refraction Advance Directives Directive Yes / No Effective Date File Name No Information Encounters Encounter Description Practice Location Reason(s) For Visit Diagnoses Date Provider Providers Copied on Encounter [facility], [address] [place] [address] [address], [place], [place], [address], tel:[phone] [facility] No Information Oct-2 1-201 0 Cloud OD Giblerto. [address], [place], [place], [facility], [place]. tel:[phone] [facility], [address], [place], [place], [id number], [place] tel:[phone] [facility] No Information Sep-0 3-200 9 Cloud OD Gilberto. [address], [place], [place], [facility], . tel:[phone] [facility], [address] [place] [address] [address], [place], [place], [id number], [place] tel:[phone] [facility] No Information [facility] [employer] . [address], [address], [place], [place], [address], [place]. tel:[phone] Referring Provider: Gilberto Cloud OD Jean Claude, [address], [place], [address]. tel:[phone] sulting Provider: Susan Ross, [address] [place], [address]. tel:[phone] [facility], [address], [place], [place], [address], [place] tel:[phone] [facility] No Information 7 Cloud OD Gilberto. [address] , [address], [place], [address], [place]. tel:[phone] Family History Family Member Type Diagnosis Age At Onset No Information Payers Payer name Insurance type Covered alliance party ID Authoriza tidontae(s) [facility] Out Of State CI [id number] Social History Type Description Quantity Date Captured [...]
--- OUTSIDE RECORDS SUMMARY | 2024-09-15 12:02 | XMS_ITS | Clinical Summary ---
Author Organization [facility] [employer] Address [address] [place] [address] Care Team Providers Care Development Officer Name Role Phone Unavailable Primary Care Provider Unavailabl e Source Comments [facility],non-owned Affiliates and Associated Physician Practices is amultiple site organization consisting of ambulatory clinics and hospital sitesin [place], [place], [place] and [place]. This disclosure is being madepursuant to the Care Everywhere program and may not contain all information available regarding this patient. Last updated 18.[facility] [employer] Social History Tobacco Use Types Packs/Day Years [...]
--- OUTSIDE RECORDS SUMMARY | 2024-09-15 12:02 | XMS_ITS | Patient Health Summary ---
Author Organization [facility] Address [address] [place] [address] Care Team Providers Care Manager Renewable Energy Name Role Phone Unavailable Primary Care Provider Unavailabl e Note from [facility],non-owned Affiliates and Associated Physician Practices is amultiple site organization consisting of ambulatory clinics and hospital sitesin [place], [place], [place] and [place]. This disclosure is being madepursuant to the Care Everywhere program and may not contain all information available regarding this patient. Last updated 18.[facility] Social History Tobacco Use Types Packs/Day Years [...] evidence of high grade dysplasia SR cs Apparatus Cleaner cs Pathologist Kathleen Pradhan M.D. [place]. 12/06/2007 0909 <1> CPT code 21180 MISCELLANEOUS SAMPLES / Unknown 12/05/2007 12:43 PM CDT 12/05/2007 3:02 PM CDT Historical Provider LAB - PATHOLOGY/C YTOLOGY ORDERABLES
--- OUTSIDE RECORDS SUMMARY | 2024-09-15 12:02 | XMS_ITS | Clinical Summary ---
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
--- OUTSIDE RECORDS SUMMARY | 2024-09-15 12:02 | XMS_ITS | Referral Summary ---
Author Organization [facility] Address [address] [place] [address] Care Team Providers Care Burr Grinder Name Role Phone Unavailable Primary Care Provider Unavailabl e Source Comments [facility],non-owned Affiliates and Associated Physician Practices is amultiple site organization consisting of ambulatory clinics and hospital sitesin [place], [place], [place] and [place]. This disclosure is being madepursuant to the Care Everywhere program and may not contain all information available regarding this patient. Last updated 18.[facility] [employer] Social History Tobacco Use Types Packs/Day Years Used Date Smoking Tobacco: Never Assessed Sex and Gender Information Value Date Recorded Sex Assigned at Not on file Gender Identity Not on file Sexual Orientation Not on file Plan of Treatment Not on file
[2024-09-15 12:26] VITALS: BP 158/88; PULSE 55; RESP 17; O2SAT 96
== END 2024-09-15 12:48 | disposition short-term general hospital (02) ==
PROVIDERS: Physician Assistant; Emergency Provider Family Medicine; PCP Family Medicine
DX: I63.9 Cerebral infarction, unspecified (principal); R00.1 Bradycardia, unspecified; R90.82 White matter disease, unspecified; Z85.828 Personal history of other malignant neoplasm of skin; I10 Essential (primary) hypertension; E78.5 Hyperlipidemia, unspecified
CPT/HCPCS: 36415; 70450; 70496; 70498; 71045; 80053; 82948; 84484; 85025; 85610; 85730; 93005; 99285; J3101; Q9967

== ENCOUNTER 2025-05-26 08:49 | Outpatient (CLI) | payer OTHER, SELFPAY ==
--- OUTSIDE RECORDS SUMMARY | 2010-05-18 12:30 | XMS_ITS | Continuity of Care Document ---
Author Organization [facility] Address [address] [place] [address] Phone Care Team Providers Care Specialty Molder Name Role Phone Cloud OD, Gilberto Unavailable Unavailable Procedures Procedure Date Eye Exam & Treatment Refraction Eye Exam & Treatment Refraction Frames Deluxe Progressive Lens, Polycarb Tax - Medical Eye Exam, New Patient Refraction Advance Directives Directive Yes / No Effective Date File Name No Information Encounters Encounter Description Practice Location Reason(s) For Visit Diagnoses Date Provider Providers Copied on Encounter [facility], [address] [place] [address] [address], [place], [place], [id number], tel:[phone] [facility] No Information Oct-2 1-201 0 Cloud OD Gilberto. [address] , [address], [place], [place], [facility], [place]. tel:[phone] [facility], [address], [place], [place], [id number], [place] tel:[phone] [facility] No Information Sep-0 3-200 9 Cloud OD Gilberto. [address], [address], [place], [place], [facility], . tel:[phone] [facility], [address] [place] [address] [address], [place], [place], [id number], [place] tel:[phone] [facility] No Information [facility] . [address], [address], [place], [place], [id number], [place]. tel:[phone] Referring Provider: Gilberto Cloud OD Jean Claude, [address], [place], [address]. tel:[phone] sulting Provider: Susan Ross, [address] [place], [address]. tel:[phone] [facility] Eye [facility], [address], [place], [place], [id number], [place] tel:[phone] [facility] No Information 7 Cloud OD Gilberto. [address] , [address], [place], [address], [place]. tel:[phone] Family History Family Member Type Diagnosis Age At Onset No Information Payers Payer name Insurance type Covered green party ID Authoriza tidontae(s) [facility] Out Of State CI [id number] Social History Type Description Quantity Date Captured Comments Sex Male Smoking Status No Information Chief Complaint And Reason For Visit No Information Reason For Referral Reason For Referral No Information History Of Present Illness Encounter Date Complaint History Of Prese nt Illness No Information Functional Status Date Functional Assessmen t No Information Instructions Date Instruction Additional Infor mation No Information Assessments Type Assessment Date No Information Patient Care Teams Name Effective Dates (start - stop) Status Members No Information
--- OUTSIDE RECORDS SUMMARY | 2025-05-26 09:21 | XMS_ITS | Clinical Summary ---
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 Gender Identity Not on file Sexual Orientation Not on file Plan of Treatment Health Maintenance Due Date Last Done Comments Hepatitis C Virus (HCV) Screening 1955 TdaP Immunization 1955 Cologuard 1998 Pneumococcal Immunization (5 0+ years) (1 of 1 - PCV) 2003 Zoster Immunization (1 of 2) 2003 Immunochemical Fecal Occult Blood 12/13/2014 014 Colonoscopy 08/15/2022 08/15/2017 Colorectal Cancer Screening 08/15/2022 Influenza Immunization (#1) 2025 SARS-COV-2 Immunization ( - season) 2025 Respiratory Syncytial Virus (RSV) Immunization (Adult) (1 - 1-dose 75+ series) 2028 PSA Discussion Discontinued 11/17/2009 Hepatitis B Immunization Aged Out No longer eligible based on patient's age to complete this topic Human Papillomavirus (HPV) Immunization Aged Out No longer eligible b ased on patient's age to complete this topic Meningococcal Immunization (ACWY) Aged Out No longer eligible based on patient's age to complete this topic Rotavirus Immunization Aged Out No lo nger eligible based on patient's age to complete this topic Procedures Procedure Name Priority Date/Time Associated Diagnosis Comments HM COLONOSCOPY Routine 08/15/2017 STOOL, OCCULT BLOOD IMMUNOASSAY [...] Most Recently Relevant to Health Maintenance Insurance [facility] Care Teams Shipping Helper Relationship Specialty Start Date End Date Provider, Unknown UNKNOWN PCP - General 08/17/17
--- OUTSIDE RECORDS SUMMARY | 2025-05-26 09:21 | XMS_ITS | Clinical Summary ---
Author Organization [facility] Address [address] [place] [place] [address] Care Team Providers Care Financial Coach Name Role Phone Hiren Hardy MD Primary Care Provider [phone] Source Comments [facility],non-owned Affiliates and Associated Physician Practices is amultiple site organization consisting of ambulatory clinics and hospital sitesin [place], [place], [place] and [place]. This disclosure is being madepursuant to the Care Everywhere program and may not contain all information available regarding this patient. Last updated 18.[facility] Allergies No known active allergies Medications * Be aware that medications may not be up to date on this document. Alwaysverify current medications with the patient. atorvastatin (Lipitor) 40 MG tablet Take 1 (one) tablet by mouth once daily 60 tablet 3 09/17/19 25 Active losartan - hydroCHLOROthiazide (Hyzaar) 50-12.5 MG tablet Take 1 (one) tablet by mouth once daily Active omeprazole (PriLOSEC) 20 MG capsule Take 1 (one) capsule by mouth every 2 days Active levothyroxine (Synthroid) 88 MCG tablet Take 1 (one) tablet by mouth daily before breakfast Active apixaban (Eliquis) 5 MG tablet Take 1 (one) tablet by mouth 2 times daily 180 tablet 3 12/17/19 25 Active amoxicillin (Amoxil) 500 MG capsuleIndications:PFO (patent foramen ovale) (HCC),History of surgical closure of patent foramen ovale (PFO) Take 4 (four) capsules by mouth 1 Hour prior to Dental Appointment 4 capsule 11 12/19/19 Active Additional Information Patient not taking.Reason: Other, Reported on 12/23/2024 Active Problems Problem Noted Date Diagnosed Date S/P patent foramen ovale closure 01/14/2025 Atrial fib/flutter, transient 01/14/2025 PFO (patent foramen ovale) 11/12/2024 HTN (hypertension), benign 11/12/2024 History of loop recorder 11/12/2024 Weakness 09/15/2024 Cryptogenic stroke 09/15/2024 Aphasia 09/15/2024 Social History Tobacco Use Types Packs/Day Years Used Date Smoking Tobacco: Former Cigarettes Q uit: 1983 Smokeless Tobacco: Never Tobacco Cessation:Counseling Given: Not Answered Alcohol Use Standard Drinks/Week Comments Yes 2 (1 standard drink = 0.6 oz pur e alcohol) AUDIT-C Answer Date Recorded Q1: How often do you have a drink containing alc ohol? 2-4 times a month 12/01/2024 Q2: How many drinks containi ng alcohol do you have on a typical day when you are drinking? 1 or 2 12/01/2024 Q3: How often do you have si x or more drinks on one occasion? Never 12/01/2024 Overall Financial Resource Strain (CARDIA) Answe r Date Recorded How hard is it for you to pa y for the very basics like food, housing, medical care, and heating? Not hard at all 09/15/2024 PHQ-2 Answer Date Recorded Patient Health Questionnaire-2 Score 0 09/16/2024 [facility] - Occupational Stress Questionnaire Answer Date Recorded Do you feel stress - tense, restless, nervous, or anxious, or unable to sleep at night because your mind is troubled all the time - these days? Not at all 09/15/2024 Hunger Vital Sign Answer Date Recorded Within the past 12 months, y ou worried that your food would run out before you got the money to buy more. Never true 09/15/19 Within the past 12 months, t he food you bought just didn't last and you didn't have money to get more. Never true 09/15/2024 PRAPARE - Transportation Answer Date Re corded In the past 12 months, has l ack of transportation kept you from medical appointments or from getting medications? No 08/29 In the past 12 months, has l ack of transportation kept you from meetings, work, or from getting things needed for daily living? No 09/15/2024 Housing Stability Vital Sign Answer Miguel e Recorded In the last 12 months, was t here a time when you were not able to pay the mortgage or rent on time? No 09/15/2024 In the past 12 months, how m any times have you moved where you were living? 0 09/15/2024 At any time in the past 12 m [facility], were you homeless or living in a alf (including now)? No 09/15/2024 Sex and Gender Information Value Date Recorded Sex Assigned at Not on file Legal Sex Male 6:38 AM HOSPICE MANAGER Gender Identity Not on file Sexual Orientation Not on file Last Filed Vital Signs Vital Sign Reading Time Taken Comments Blood Pressure 120/82 01/14/2025 3:26 PM CDT Pulse 58 01/14/2025 3:26 PM CDT Temperature 36.9 C (98.4 F) 12/01/2024 2:00 PM CDT Respiratory Rate 12 12/23/2024 9:46 AM CDT Oxygen Saturation 98% 01/14/2025 3:26 PM CDT Inhaled Oxygen Concentration - - Weight 82.6 kg (182 lb) 01/14/2025 3:26 PM CDT Height 175.3 cm (5' 9) 01/14/2025 3:26 PM CDT Body Mass Index 26.88 01/14/2025 3:26 PM CDT Plan of Treatment Upcoming Encounters Date Type Department Care Team (Late st Contact Info) Description 06/25/2025 1:00 AM HOSPICE MANAGER Clinical Support [facility] - Cardiology [address], [facility] [address] [place] [address] 07/15/2025 2:15 PM HOSPICE MANAGER Office Visit [facility] - Cardiology [address], [facility] [address] [place] [address] Cass Guerra MD [address] [facility] [address] [place] [address] 07/30/2025 1:00 AM HOSPICE MANAGER Clinical Support [facility] - Cardiology [address], [facility] [address] [place] [address] 09/02/2025 1:00 AM HOSPICE MANAGER Clinical Support [facility] - Cardiology [address] [facility], [facility] [address] [place] [address] Health Maintenance Due Date Last Done Comments COLOGUARD (AGES 45-75) - COLON CA SCREENING [address] COLONOGRAPHY - COLON CA SCREENING 1955 FIT - COLON CA SCREENING 1955 FLEX SIG - COLON CA SCREENING 1955 MEDICARE AWV 12 MONTHS 1953 HEPATITIS C SCREENING 06/05/1971 DTAP/TDAP/TD VACCINES (1 - Tdap) 1972 PNEUMOCOCCAL VACCINE 50+ (1 of 1 - PCV) 2003 ZOSTER VACCINE (1 of 2) 2003 Respiratory Syncytial Virus (RSV) Vaccine Pt: or over 60 yrs (1 - Risk 60-74 years 1-dose series) 2013 COLONOSCOPY - COLON CA SCREENING 12/04/2017 12/05/2007 (Previously completed) Colorectal Cancer Screening 12/04/2017 AAA SCREENING 2018 COVID-19 VACCINE ( season) 2025 06/28/2022, 07/10/2021, 10/16/2020, Additional history exists INFLUENZA VACCINE (#1) 2025 3, 06/06/2022, 08/03/2021, Additional history exists DEPRESSION SCREENING Completed 09/15/2024 HEPATITIS B VACCINE Aged Out No longe r eligible based on patient's age to complete this topic HIB VACCINE Aged Out No longer eligi ble based on patient's age to complete this topic HPV VACCINE Aged Out No longer eligi ble based on patient's age to complete this topic MENINGOCOCCAL (Group B) VACCINE SHARED DECISION-MAKING Aged Out No longer eligible based on patient's age to complete this topic MENINGOCOCCAL GROUPS A/C/Y/W VACCINE Aged Out No longer eligible based on patient's age to complete this topic Medical Devices Implanted Type Area Primer Inserting Machine Operator Device Identifier Shelf Expiration Date Model / Serial / Lot Dev Crd [id number] Assert-Iq Thk4.4mm - [id number] Implanted:Qty: 1 on 09/17/2024 by Victor Hugo Barnes MD at [facility] [employer] [id number] 12/30/2024 [id number] / [id number] / [id number] O[employer] Cv 25mm Spt Sft Wire [facility] Flrscp g - [id number] Implanted:Qty: 1 on 12/01/2024 by Cass Guerra MD at [facility] [employer] [id number] 12/29/2025 [id number] / [id number] / X Procedures Procedure Name Priority Date/Time Associated Diagnosis Comments CARDIAC PROCEDURE ORDER 03/10/2025 MD ILR DEVICE INTERROGAT REMOTE Routine 03/06/2025 4:17 PM CDT Cryptogenic stroke (HCC) Status post placement of implantable loop recorder from Last 3 Months Results * CARDIAC PROCEDURE ORDER (03/10/2025) Narrative 03/10/2025 Ordered by an unspecified provider. us Scanned Document CARDIAC SERVICES ORDERABLES Fin al Result * MD ILR DEVICE INTERROGAT REMOTE (03/06/2025 4:17 PM CDT) Narrative Yrn Chinchilla MD - 03/06/2025 4:17 PM CDT Yrn Chinchilla MD 03/06/2025 4:18 PM Dear Cain Willams, I reviewed the remote interrogation of your loop recorder. Your device's sensing is appropriate and stable. During this most recent monitored period ending on 02/04/2025, more episodes of afib were seen on 01/01/2025. However, this may be normal after PFO closure. We will cont to monitor your burden of AF closely. Device function is normal, no programming changes are required, and no medications will need to be changed. Please call our offices if you have any further questions. Sincerely, Yrn Chinchilla 03/06/2025 us Yrn Chinchilla MD PROCEDURE/MINOR SURGICAL ORDERAB LES Final Result from Last 3 Months Insurance [facility] MEDICARE Advance Directives * Full Code (Latest Code Status on File) Date Activated Date Inactivated Comments 12/01/2024 1:58 PM 12/01/2024 6:22 PM * Full Code Date Activated Date Inactivated Comments 09/15/2024 1:54 PM 09/15/2024 1:59 PM * Full Code Date Activated Date Inactivated Comments 09/15/2024 1:42 PM 09/15/2024 1:54 PM Care Teams Financial Coach Relationship Specialty Start Date End Date Hiren Hardy MD [address] [place] [address] PCP - General Family Medicine 09/18/24
== END 2025-05-26 08:50 | disposition home or self-care (01) ==
LOC: ANHAUDASC 08:50
PROVIDERS: PCP Family Medicine; Visit Provider Otolaryngology
DX: H90.3 Sensorineural hearing loss, bilateral (principal)
CPT/HCPCS: 92557; 92567